=== PATIENT | male | born 1935 | race Caucasian/White ===

== ENCOUNTER 2018-04-24 17:22 | Emergency (ER) | payer MEDICARE, OTHER ==
[~2018-04-24] VITALS: Ht 185.4 cm; Wt 114.3 kg
--- NOTE | ~2018-04-24 | EKG ---
[place], [place] ELECTROCARDIOGRAM REPORT NAME: DILCIA HARRIS UNIT #: [id number] ROOM: DOCTOR: ALEXSANDER DRAFT REPORT BIRTHDATE: [birth year] [facility] Test Date: 2018-04-24 Test Time: 17:47:34 Pat Name: DILCIA HARRIS Department: Patient ID: ELOH- Room: Gender: M Computer Help Desk Specialist: EKG.PR : 1935 Requested By: ADELINA MATTHEW Order Number: [id number] Reading MD: Measurements Intervals [place] Rate: 69 P: 22 WA: 192 QRS: 7 QRSD: 93 T: 8 QT: 413 QTc: 443 Interpretive Statements Sinus rhythm Abnormal R-wave progression, early transition Borderline T abnormalities, inferior leads Compared to ECG 04/22/2018 16:50:27 T-wave abnormality now present CM:EKGRPT:ELECTROCARDIOGRAM REPORT [id number] ADELINA SCHULZ DRAFT REPORT ADELINA MATTHEW DO
[2018-04-24] MEDS ORDERED: HYDR25T PO (17:32)
[2018-04-24] MEDS ORDERED: METAMUCIL0.4 G1 PO (17:33)
[2018-04-24 18:00] LABS: BASO % 0.7 % (0.0-1.0); EOS # 0.1 10*3/uL (0.0-0.4); EOS % 2.1 % (1.0-4.0); HEMATOCRIT 43.3 % (42.0-52.0); HEMOGLOBIN 14.8 g/dl (14.0-18.0); LYMPH # 1.2 10*3/uL (1.3-4.4); MEAN CELL VOLUME 87.5 fl (80.0-94.0); MEAN CORPUSCULAR HGB 29.9 pg (27.0-31.0); MEAN CORPUSCULAR HGB CONC 34.2 g/dl (33.0-37.0); MEAN PLATELET VOLUME 8.7 fl (9.6-12.3); MONO # 0.5 10*3/uL (0.1-1.0); MONO % 8.9 % (3.0-9.0); NEUT # 3.9 10*3/uL (2.3-7.9); PLATELET COUNT AUTOMATED 167 10*3/uL (130-400); RED BLOOD COUNT 4.95 10*6/uL (4.50-5.90); WHITE BLOOD COUNT 5.8 10*3/uL (4.8-10.8)
[2018-04-24 18:09] LABS: ACT PARTIAL THROMBO TIME 23.6 SECONDS (20.8-31.5)
[2018-04-24 18:17] LABS: ALBUMIN 3.3 gm/dl (3.1-4.5); ALKALINE PHOSPHATASE 74 U/L (45-117); BUN 12 mg/dl (7-24); CHLORIDE 103 mmol/L (98-107); CREATININE 0.96 mg/dL (0.70-1.30); LIPASE 102 U/L (73-393); POTASSIUM 3.6 mmol/L (3.5-5.1); SGOT/AST 42 IU/L (3-35); SGPT/ALT 62 U/L (12-78); SODIUM 139 mmol/L (136-145); TOTAL PROTEIN 6.9 gm/dL (6.4-8.2)
[2018-04-24 18:25] LABS: TROPONIN I 0.092 ng/ml (<0.045)
== END 2018-04-24 20:05 | disposition left against medical advice (07) ==
LOC: ED 17:22
PROVIDERS: Emergency Medicine
DX: R55 Syncope and collapse (principal); R79.89 Other specified abnormal findings of blood chemistry; R01.1 Cardiac murmur, unspecified; R42 Dizziness and giddiness; Z79.899 Other long term (current) drug therapy